=== PATIENT | male | born 1995 | race Caucasian/White ===

== ENCOUNTER 2020-07-25 13:43 | Emergency (ER) | payer MEDICAID, SELFPAY ==
[2020-07-25 13:44] VITALS: BP 124/84; PULSE 90; RESP 16; TEMP 37.2; O2SAT 95; BMI 33.0
--- NOTE | 2020-07-25 14:00 | ECG_ITS ---
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 Measurements Intervals [place] Rate: 72 P: 14 [place]: 170 QRS: -26 QRSD: 110 T: 44 QT: 380 QTc: 416 Interpretive Statements SINUS RHYTHM BORDERLINE LEFT AXIS DEVIATION [QRS AXIS < -20] Compared to ECG 04/21/2019 20:22:19 No significant changes Electronically Signed On 07-27-2020 20:43:24 CDT by Socrates Arias M.D. [id number]
--- NOTE | 2020-07-25 14:00 | XRR_ITS ---
PROCEDURE INFORMATION: Exam: XR Chest, 1 View Exam date and time: 07/25/2020 2:44 PM Age: 24 years old Clinical indication: Chest pain; Type not specified TECHNIQUE: Imaging protocol: XR of the chest Views: 1 view. COMPARISON: CR Chest 1 [place] [id number] 04/21/2019 8:42 PM FINDINGS: Lungs: Unremarkable. No consolidation. Pleural space: Unremarkable. No pleural effusion. No pneumothorax. Heart/Mediastinum: Unremarkable. No cardiomegaly. Bones/joints: Unremarkable. XR/XR chest 1V portable [id number] IMPRESSION: No acute findings.
--- NOTE | 2020-07-25 14:09 | ED_ITS ---
HPI - Chest Pain General: Chief Complaint: Chest Pain Stated Complaint: CHEST PAIN Time Seen by Provider: 07/25/20 13:46 History of Present Illness: HPI narrative: 24-year-old male presents emergency room with complaint of sudden onset of chest pain. He was watching a movie and began having sudden onset of chest pain associated with some shortness of breath it is significantly improved already since then. He has no personal history of heart disease or diabetes. He is on several medications for psychiatric issues. No recent medication changes he had eaten shortly before this. MD complaint: chest pain Onset (ago): minute(s) Timing of current episode: episodic and other (Decreasing) Prior episodes: No Onset: during rest Pain location: substernal and epigastric Severity: mild Quality: aching Relieving factors: nothing Exacerbating factors: nothing Associated symptoms: Reports dyspnea and syncope; Deny abdominal pain, diaphoresis, fever(s), leg edema, nausea, palpitations, sense of impending doom, vomiting or other Treatment prior to arrival: none Review of Systems Const: Denies: fever(s) or diaphoresis ENMT: Denies: throat pain, ear or mastoid pain, nasal discharge or nasal congestion Card: Reports: syncope; Denies: palpitations Resp: Reports: dyspnea GI: Denies: abdominal pain, nausea or vomiting : Denies: flank pain, dysuria, urinary frequency or urinary urgency Skin/Breast: Denies: rash or pruritus Physical Exam Const: COMMON NORMALS: no acute distress GENERAL APPEARANCE: cooperative and comfortable ORIENTATION/CONSCIOUSNESS: Yes awake, Yes oriented to person, Yes oriented to place and Yes oriented to time HENMT: COMMON NORMALS: normocephalic, atraumatic and hearing grossly normal bilaterally HEAD & SCALP: normocephalic and atraumatic Neck/C-Spine: COMMON NORMALS: no JVD Resp: COMMON NORMALS: normal respiratory effort, No retractions, No use of accessory muscles and clear to auscultation bilaterally AUSCULTATION: clear to auscultation bilaterally Cardio: COMMON NORMALS: no JVD, regular rate, regular rhythm and No murmurs present (Cardio) RATE: regular rate RHYTHM: regular rhythm GI: COMMON NORMALS: Soft to palpation and No hepatosplenomegaly present AUSCULTATION: Yes normoactive bowel sounds PALPATION: Yes Soft to palpation, No Tenderness to palpation present (GI), No Guarding due to palpation present (GI) and Yes No hepatosplenomegaly present Extremity: COMMON NORMALS: normal to inspection, capillary refill normal, no clubbing, cyanosis or edema, no calf tenderness and no pedal edema Neuro: SENSORIUM/ORIENTATION: Yes oriented to person, Yes oriented to place and Yes oriented to time Skin: COMMON NORMALS: no rashes or lesions noted GENERAL SKIN EXAM: no rashes or lesions noted Course Vital Signs: Vital signs: Vital Signs Temperature 98.1 F 07/25/20 14:18 Pulse Rate 83 07/25/20 15:50 Respiratory Rate 18 07/25/20 15:50 Blood Pressure 113/67 07/25/20 15:50 Pulse Oximetry 97 07/25/20 15:50 MDM - Chest Pain MDM Narrative: Medical decision making narrative: Complete resolution of symptoms after GI cocktail. EKG unremarkable labs normal will discharge home start on Pepcid follow-up as needed Lab Data: Labs: Lab Results 07/25/20 07/25/20 07/25/20 Range/Units 14:23 14:23 14:23 WBC 8.0 (4.0-10.0) 10^3/ uL RBC 4.98 (4.1-5.3) 10^6/u L Hgb 15.5 (11.7-16.6) g/dL Hct 45.2 (42.0-52.0) % MCV 90.8 (80-94) fL MCH 31.1 (28.0-34.0) pg MCHC 34.3 (30.0-36.0) g/dL RDW 12.5 (12.1-15.1) % Plt Count 280 (130-400) 10^3/c mm MPV 9.7 (7.4-10.4) fL Neut % (Auto) 62.6 % Lymph % (Auto) 28.7 % [place] % (Auto) 6.6 % Eos % (Auto) 1.0 % Baso % (Auto) 0.6 % Neut # (Auto) 5.02 (1.8-7.7) 10^3/u L Lymph # (Auto) 2.3 (0.8-4.8) 10^3/u L [place] # (Auto) 0.5 (0.2-0.9) 10^3/u L Eos # (Auto) 0.1 (0.0-0.8) 10^3/u L Baso # (Auto) 0.1 (0.0-0.1) 10^3/u L Nucleated RBC % (a uto) 0 % Nucleated RBCs # 0.0 /100WBC Sodium 140 (136-145) mmol/L Potassium 4.0 (3.5-5.1) mmol/L Chloride 103 (98-107) mmol/L Carbon Dioxide 23 (22-29) mmol/L Anion Gap 18.0 (5-19) BUN 7 (6-20) mg/dL Creatinine 0.8 (0.7-1.2) mg/dL GFR Calculation 119.8 (90-130) mL/min Glucose 91 (65-115) mg/dL Calculated Osmolal ity 288 (285-295) mOsm/k g Calcium 9.7 (8.5-10.5) mg/dL Total Bilirubin 0.6 (0.15-1.2) mg/dL AST 29 (0-40) U/L ALT 47 H (0-41) U/L Alkaline Phosphata se 145 H (40-130) IU/L Troponin T Baselin e 6 (0-15) ng/L Total Protein 7.1 (6.6-8.7) g/dL Albumin 4.8 (3.5-5.2) g/dL Globulin 2.3 (1.3-4.6) g/dL Discharge Plan Discharge Patient Disposition: Home Clinical Impression: Chest pain due to gastrointestinal reflux disease Condition: Stable Prescriptions: New Pepcid 20 mg tablet 20 mg PO BID Qty: 60 RF: 0 No Action doxepin 10 mg Capsule 10 mg PO BEDTIME RF: 0 lamotrigine 25 mg Tablet 25 mg PO BID RF: 0 simvastatin 5 mg Tablet 5 mg PO QPM RF: 0 mupirocin 2 % Ointment 1 applic TOPICAL BID RF: 0 fluticasone propionate 50 mcg/actuation [place],Suspension 1 spray INTRANASAL DAILY RF: 0 risperidone 0.5 mg Tablet 1.5 mg PO BEDTIME RF: 0 risperidone 0.5 mg Tablet 0.5 mg PO DAILY RF: 0 Denta 5000 Plus 1.1 % Cream 1 applic DENTAL BID RF: 0 venlafaxine 75 mg Tablet Extended Release 24hr 75 mg PO QAM RF: 0 Discharge Orders: Discharge Order (Routine); Ordered 07/25/20 Ordered By: Girma Simmons Referrals: Madhuri Degroot FNP [Primary Care Provider] - Discharge Activity: Increase activity as tolerated Patient Instructions: Diet for Ulcers and Gastritis (ED) Activity Restrictions/Additional Instructions: Start Pepcid 1 pill twice a day follow-up with primary care doctor if not improving in the next week. Coding Level of Care Code ED Cytotechnologist Supervisor for Chg Fwd Exam Comprehensive
[2020-07-25] MEDS: lidocaine 2% viscous 15 ML, aluminum-mag hydrox-simethicon 30 ML, sucralfate oral liq 1 GM PO (14:11)
[2020-07-25 14:18] VITALS: BP 119/71; PULSE 83; RESP 17; TEMP 36.7; O2SAT 96
[2020-07-25 14:55] LABS: Basophils # 0.1 10^3/uL (0.0-0.1); Basophils % 0.6 %; Eosinophils # 0.1 10^3/uL (0.0-0.8); Hematocrit 45.2 % (42.0-52.0); Hemoglobin 15.5 g/dL (11.7-16.6); Lymphocytes # 2.3 10^3/uL (0.8-4.8); Lymphocytes % 28.7 %; Mean Corpuscular HGB Conc 34.3 g/dL (30.0-36.0); Mean Corpuscular Hemoglobin 31.1 pg (28.0-34.0); Mean Corpuscular Volume 90.8 fL (80-94); Mean Platelet Volume 9.7 fL (7.4-10.4); Monocytes # 0.5 10^3/uL (0.2-0.9); Monocytes % 6.6 %; Neutrophils # 5.02 10^3/uL (1.8-7.7); Neutrophils % 62.6 %; Nucleated Red Blood Cells % 0 %; Platelet Count 280 10^3/cmm (130-400); Red Blood Count 4.98 10^6/uL (4.1-5.3); Red Cell Distribution Width 12.5 % (12.1-15.1)
[2020-07-25 15:12] LABS: Alanine Aminotransferase 47 U/L (0-41); Albumin Level 4.8 g/dL (3.5-5.2); Alkaline Phosphatase 145 IU/L (40-130); Aspartate Amino Transferase 29 U/L (0-40); Blood Urea Nitrogen 7 mg/dL (6-20); Calcium 9.7 mg/dL (8.5-10.5); Carbon Dioxide 23 mmol/L (22-29); Chloride 103 mmol/L (98-107); Globulin 2.3 g/dL (1.3-4.6); Glomerular Filtration Rate 119.8 mL/min (90-130); Glucose 91 mg/dL (65-115); Osmolality Calculated 288 mOsm/kg (285-295); Sodium 140 mmol/L (136-145); Total Bilirubin 0.6 mg/dL (0.15-1.2); Total Protein 7.1 g/dL (6.6-8.7)
[2020-07-25 15:36] LABS: Troponin(5th) Baseline 6 ng/L (0-15)
[2020-07-25 15:50] VITALS: BP 113/67; PULSE 83; RESP 18; O2SAT 97
--- NOTE | 2020-07-25 16:00 | ECG_ITS ---
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 Measurements Intervals [place] Rate: 89 P: 16 NC: 165 QRS: 7 QRSD: 110 T: 47 QT: 361 QTc: 441 Interpretive Statements SINUS RHYTHM INDETERMINATE AXIS PATTERN CONSISTENT WITH PULMONARY DISEASE Compared to ECG 07/25/2020 13:52:45 Indeterminate axis now present Electronically Signed On 07-27-2020 20:58:09 CDT by Socrates Arias M.D. [email or web address] Drinkmercy health st[email or web address]/NU/[id number] f
[2020-07-25 17:18] LABS: Troponin 5 2HR Delta 0 ABS# (0-10)
== END 2020-07-25 16:43 | disposition home or self-care (01) ==
PROVIDERS: Emergency Provider Family Medicine; Family Provider Registered Nurse; PCP Registered Nurse
DX: K21.9 Gastro-esophageal reflux disease without esophagitis (principal)
CPT/HCPCS: 12345; 36415; 71045; 80053; 84484; 85025; 93005; 99283; 99284

== ENCOUNTER → 2021-03-01 12:26 | Outpatient (BNVA) | payer MEDICAID, SELFPAY | PROVIDERS: PCP Registered Nurse; Visit Provider Social Worker | DX: F33.1 Major depressive disorder, recurrent, moderate (principal); F43.12 Post-traumatic stress disorder, chronic | CPT/HCPCS: 90832 ==

== ENCOUNTER → 2021-03-22 13:43 | Outpatient (BNVA) | payer MEDICAID, SELFPAY | PROVIDERS: PCP Registered Nurse; Visit Provider Social Worker | DX: F33.1 Major depressive disorder, recurrent, moderate (principal); F43.12 Post-traumatic stress disorder, chronic | CPT/HCPCS: 90834 ==

== ENCOUNTER → 2021-04-12 12:55 | Outpatient (BNVA) | payer MEDICAID, SELFPAY | PROVIDERS: PCP Registered Nurse; Visit Provider Social Worker | DX: F33.1 Major depressive disorder, recurrent, moderate (principal); F43.12 Post-traumatic stress disorder, chronic | CPT/HCPCS: 90834 ==

== ENCOUNTER 2021-12-26 20:00 | Outpatient (CLI) | payer MEDICAID, SELFPAY | END 2021-12-26 20:01 | disposition home or self-care (01) | LOC: SLEEP 12-27 06:46 | PROVIDERS: PCP Registered Nurse; Visit Provider Nurse Practitioner Family | DX: G47.10 Hypersomnia, unspecified (principal); R06.83 Snoring; R53.83 Other fatigue | CPT/HCPCS: 95810 ==

== ENCOUNTER 2022-01-17 20:27 | Emergency (ER) | payer MEDICAID, SELFPAY ==
[2022-01-17 20:42] VITALS: BP 158/100; PULSE 69; RESP 16; TEMP 37.1; O2SAT 98; BMI 32.1
--- NOTE | 2022-01-17 20:50 | CTR_ITS ---
PROCEDURE INFORMATION: Exam: CT Abdomen And Pelvis With Contrast Exam date and time: 01/17/2022 9:14 PM Age: 26 years old Clinical indication: Abdominal pain; Generalized; Additional info: Fever, diarrhea TECHNIQUE: Imaging protocol: Computed tomography of the abdomen and pelvis with contrast. Radiation optimization: All CT scans at this facility use at least one of these dose optimization techniques: automated exposure control; mA and/or kV adjustment per patient size (includes targeted exams where dose is matched to clinical indication); or iterative reconstruction. Contrast material: OMNI 300; Contrast volume: 95 ml; Contrast route: INTRAVENOUS (IV); COMPARISON: CR XR chest 1V portable [id number] 07/25/2020 2:31 PM RADIATION DOSE METRICS: Total DLP (mGy-cm): 2014.36 FINDINGS: Lungs: The lung bases are clear. No effusion Liver: Normal. No mass. Gallbladder and bile ducts: No wall thickening, pericholecystic fluid or stones. Pancreas: Normal. No ductal dilation. Spleen: Normal. No splenomegaly. Adrenal glands: Normal. No mass. Kidneys and ureters: 4.3 cm left renal cyst. Stomach and bowel: Unremarkable. No obstruction. No mucosal thickening. Appendix: No evidence of appendicitis. Intraperitoneal space: Unremarkable. No free air. No significant fluid collection. Vasculature: Unremarkable. No abdominal aortic aneurysm. Lymph nodes: Unremarkable. No enlarged lymph nodes. Urinary bladder: Unremarkable as visualized. Reproductive: Unremarkable as visualized. Bones/joints: Unremarkable. No acute fracture. Soft tissues: Unremarkable. CT/CT abdomen pelvis w con* [id number] IMPRESSION: No cause for acute pain is identified. COMMENTS: Consistent with the [place] [employer]'s Incidental Findings Committee white paper (J Am Hayley Radiol 2018): Any incidental renal lesion less than 1 cm or classified as too small to characterize, or any incidental cystic renal lesion characterized as simple-appearing, is likely benign. No follow-up imaging is recommended for these lesions per consensus recommendations based on imaging criteria.
--- NOTE | 2022-01-17 20:53 | ED_ITS ---
HPI - Fever General: Chief Complaint: Fever Stated Complaint: High Blood Pressure\Fever\Diarhea Time Seen by Provider: 01/17/22 20:50 History of Present Illness: 26-year-old male patient comes in today with complaints of diarrhea for 7 days, increase in blood pressure, and a fever of 101 today. Patient also noticed some blood in his stool today. Patient has a history of intellectual disability, ADHD, and mood disorder. Review of patient's medications he does take pantoprazole and meloxicam routinely along with his other psychiatric medications. Patient also uses ibuprofen for breakthrough pain. Patient appears nontoxic. Patient appears in no pain. Patient does report some shortness of breath with exertion. MD elicited complaint: malaise Onset (ago): day(s) Measured temperature: 101 F Associated symptoms: Reports diarrhea; Deny chest pain or vomiting Review of Systems General: Reports: 10 or more systems reviewed and unremarkable except in HPI and below Const: Reports: fever(s) ENMT: Denies: throat pain Card: Denies: chest pain Resp: Reports: dyspnea GI: Reports: diarrhea; Denies: vomiting : Denies: difficulty urinating Skin/Breast: Denies: rash PFS ED PFSH: Social History Smoking and tobacco status: current every day smoker (chew) Current gender identity: Male Physical Exam Const: COMMON NORMALS: alert HENMT: HEAD & SCALP: normal to inspection Neck/C-Spine: COMMON NORMALS: full ROM Resp: COMMON NORMALS: normal respiratory effort and clear to auscultation bila terally AUSCULTATION: clear to auscultation bilaterally Cardio: COMMON NORMALS: regular rate and regular rhythm RATE: regular rate RHYTHM: regular rhythm GI: COMMON NORMALS: Soft to palpation and non-tender PALPATION: Yes Soft to palpation Extremity: COMMON NORMALS: full ROM and no pedal edema Neuro: SENSORIUM/ORIENTATION: Yes alert Psych: COMMON NORMALS: cooperative Skin: COMMON NORMALS: no rashes or lesions noted and turgor normal GENERAL SKIN EXAM: no rashes or lesions noted and turgor normal Course Vital Signs: Vital signs: Vital Signs Temperature 99.3 F 01/17/22 21:00 Pulse Rate 65 01/17/22 21:20 Respiratory Rate 20 H 04/07/22 21:20 Blood Pressure 154/81 04/07/22 21:20 Pulse Oximetry 98 01/17/22 21:20 MDM - Fever Medical Decision Making 26-year-old male patient comes in today with complaints of diarrhea for 7 days. Patient was concerned due to a temperature of 101 today, and noticing some blood in his stool. On exam abdomen soft nontender. Bowel sounds are present. Lungs are clear to auscultation. Skin is warm and dry. Vital signs are normal except for some mild elevation in blood pressure. Differential diagnosis includes diverticulitis, colitis, gastroenteritis. Laboratory values were unremarkable. Urinalysis was normal. CT of the abdomen pelvis was unremarkable. Believe the patient probably has an mild bout of gastroenteritis with secondary persistent diarrhea. Recommended some loperamide for diarrhea and recommended follow-up with primary care next week for recheck on blood pressure and further treatment. Patient appears nontoxic, caregiver reports understanding of recommendations. Lab Data : 01/17/22 20:58 01/17/22 20:58 Radiology Impressions Abdomen/Pelvis CT 01/17/22 20:50 IMPRESSION: No cause for acute pain is identified. COMMENTS: Consistent with the [place] [employer]'s Incidental Findings Committee white paper (J Am Hayley Radiol 2018): Any incidental renal lesion less than 1 cm or classified as too small to characterize, or any incidental cystic renal lesion characterized as simple-appearing, is likely benign. No follow-up imaging is recommended for these lesions per consensus recommendations based on imaging criteria. Laboratory Results WBC 7.7 10^3/uL (4.0-10.0) 01/17/22 20:58 RBC 5.07 10^6/uL (4.1-5.3) 01/17/22 20:58 Hgb 15.8 g/dL (11.7-16.6) 01/17/22 20:58 Hct 46.3 % (42.0-52.0) 01/17/22 20:58 MCV 91.3 fl (80-94) 01/17/22 20:58 MCH 31.2 pg (28.0-34.0) 01/17/22 20:58 MCHC 34.1 g/dL (30.0-36.0) 01/17/22 20:58 RDW 13.2 % (12.1-15.1) 01/17/22 20:58 Plt Count 280 10^3/cmm (130-400) 01/17/22 20:58 MPV 9.6 fL (7.4-10.4) 01/17/22 20:58 Neut % (Auto) 52.2 % 01/17/22 20:58 Lymph % (Auto) 39.0 % 01/17/22 20:58 Terrell % (Auto) 5.6 % 01/17/22 20:58 Eos % (Auto) 1.6 % 01/17/22 20:58 Baso % (Auto) 1.2 % 01/17/22 20:58 Neut # (Auto) 4.00 10^3/uL (1.8-7.7) 01/17/22 20:58 Lymph # (Auto) 3.0 10^3/uL (0.8-4.8) 01/17/22 20:58 Terrell # (Auto) 0.4 10^3/uL (0.2-0.9) 01/17/22 20:58 Eos # (Auto) 0.1 10^3/uL (0.0-0.8) 01/17/22 20:58 Baso # (Auto) 0.1 10^3/uL (0.0-0.1) 01/17/22 20:58 Nucleated RBC % (auto) 0 % 01/17/22 20:58 Nucleated RBCs # 0.0 /100WBC 01/17/22 20:58 Sodium 140 mmol/L (136-145) 01/17/22 20:58 Potassium 3.9 mmol/L (3.5-5.1) 01/17/22 20:58 Chloride 105 mmol/L (98-107) 01/17/22 20:58 Carbon Dioxide 25 mmol/L (22-29) 01/17/22 20:58 Anion Gap 13.9 (5-19) 01/17/22 20:58 BUN 5 mg/dL (6-20) L 01/17/22 20:58 Creatinine 0.7 mg/dL (0.7-1.2) 01/17/22 20:58 GFR Calculation 137.4 mL/min (90-130) H 01/17/22 20:58 Glucose 102 mg/dL (65-115) 01/17/22 20:58 Calculated Osmolality 287 mOsm/kg (285-295) 01/17/22 20:58 Calcium 9.9 mg/dL (8.5-10.5) 01/17/22 20:58 Total Bilirubin 0.4 mg/dL (0.15-1.2) 01/17/22 20:58 AST 29 U/L (0-40) 01/17/22 20:58 ALT 53 U/L (0-41) H 01/17/22 20:58 Alkaline Phosphatase 135 IU/L (40-130) H 01/17/22 20:58 Total Protein 7.2 g/dL (6.6-8.7) 01/17/22 20:58 Albumin 5.0 g/dL (3.5-5.2) 01/17/22 20:58 Globulin 2.2 g/dL (1.3-4.6) 01/17/22 20:58 Lipase 25 U/L (13-60) 01/17/22 20:58 Urine Color Yellow (Yellow) 01/17/22 21:35 Urine Appearance Clear (CLEAR) 01/17/22 21:35 Urine pH 5 (5-7) 01/17/22 21:35 Ur Specific [place] 1.020 (1.005-1.030) 01/17/22 21:35 Urine Protein Neg (Negative) 01/17/22 21:35 Urine Glucose (UA) Norm (Normal) 01/17/22 21:35 Urine Ketones Negative (Negative) 01/17/22 21:35 Urine Blood Neg (Negative) 01/17/22 21:35 Urine Nitrate Negative (Negative) 01/17/22 21:35 Urine Bilirubin Neg (Negative) 01/17/22 21:35 Urine Urobilinogen Norm mg/dL (Negative) 01/17/22 21:35 Ur Leukocyte Esterase Negative (Negative) 01/17/22 21:35 EKG Data EKG 1: EKG interpretation date: 01/17/22 EKG interpretation time: 21:06 Prior EKG tracings: not available for review Interpretation: EKG shows a regular rhythm at 61 bpm. Rhythm is sinus in nature. No ST elevation or ectopy is noted. There is artifact noted on the tracing. Prior exams not available for comparison. Discharge Plan Discharge Patient Disposition: Home Clinical Impression: Viral infection Diarrhea Qualifiers: Diarrhea type: presumed infectious Qualified Code(s): R19.7 - Diarrhea, unspecified Condition: Stable Prescriptions: New loperamide 2 mg capsule 2 mg PO Q4H PRN (Reason: loose stool) Qty: 20 0RF Rx Instructions: administer after each loose stool until symptoms controlled; do not exceed 16 mg per 24 hrs No Action pantoprazole [Protonix] 20 mg tablet,delayed release (DR/EC) 20 mg PO DAILY 30 Days Qty: 30 0RF doxepin 10 mg Capsule 10 mg PO BEDTIME 0RF lamotrigine 25 mg Tablet 25 mg PO BID 0RF simvastatin 5 mg Tablet 5 mg PO QPM 0RF mupirocin 2 % Ointment 1 applic TOPICAL BID 0RF fluticasone propionate 50 mcg/actuation [place],Suspension 1 spray INTRANASAL DAILY 0RF risperidone 0.5 mg Tablet 1.5 mg PO BEDTIME 0RF risperidone 0.5 mg Tablet 0.5 mg PO DAILY 0RF Denta 5000 Plus 1.1 % Cream 1 applic DENTAL BID 0RF venlafaxine 75 mg Tablet Extended Release 24hr 75 mg PO QAM 0RF Discharge Orders: Discharge ED (Routine); Ordered 01/17/22 Ordered By: Philip Flynn Referrals: Madhuri Degroot FNP [Primary Care Provider] - Discharge Diet: Usual diet Discharge Activity: Increase activity as tolerated Patient Instructions: Gastroenteritis (ED) Activity Restrictions/Additional Instructions: Drink plenty of fluids. Use loperamide 1 capsule every 4 hours as needed for diarrhea stools. Follow-up with primary care in 1 week for recheck, and to review blood pressure. Return to ER for worsening symptoms or new concerns. Coding Level of Care Code ED Wet Process Operator for Basim Fwd Exam Comprehensive
[2022-01-17 21:00] VITALS: BP 154/81; PULSE 71; RESP 15; TEMP 37.4; O2SAT 97
[2022-01-17 21:05] LABS: Basophils # 0.1 10^3/uL (0.0-0.1); Basophils % 1.2 %; Eosinophils # 0.1 10^3/uL (0.0-0.8); Eosinophils % 1.6 %; Hematocrit 46.3 % (42.0-52.0); Hemoglobin 15.8 g/dL (11.7-16.6); Mean Corpuscular HGB Conc 34.1 g/dL (30.0-36.0); Mean Corpuscular Hemoglobin 31.2 pg (28.0-34.0); Mean Corpuscular Volume 91.3 fl (80-94); Mean Platelet Volume 9.6 fL (7.4-10.4); Monocytes # 0.4 10^3/uL (0.2-0.9); Monocytes % 5.6 %; Neutrophils % 52.2 %; Nucleated Red Blood Cells % 0 %; Platelet Count 280 10^3/cmm (130-400); Red Blood Count 5.07 10^6/uL (4.1-5.3); Red Cell Distribution Width 13.2 % (12.1-15.1); White Blood Count 7.7 10^3/uL (4.0-10.0)
[2022-01-17] MEDS: sodium chloride 0.9% 1,000 ML 999 ML IV (21:06)
[2022-01-17] MEDS: iohexol 300 mg/mL 100 mL Btl IV (21:12)
[2022-01-17 21:20] VITALS: BP 154/81; PULSE 65; RESP 20; O2SAT 98
[2022-01-17 21:31] LABS: Alanine Aminotransferase 53 U/L (0-41); Alkaline Phosphatase 135 IU/L (40-130); Anion Gap 13.9 (5-19); Aspartate Amino Transferase 29 U/L (0-40); Blood Urea Nitrogen 5 mg/dL (6-20); Calcium 9.9 mg/dL (8.5-10.5); Carbon Dioxide 25 mmol/L (22-29); Chloride 105 mmol/L (98-107); Globulin 2.2 g/dL (1.3-4.6); Glomerular Filtration Rate 137.4 mL/min (90-130); Glucose 102 mg/dL (65-115); Lipase 25 U/L (13-60); Osmolality Calculated 287 mOsm/kg (285-295); Potassium 3.9 mmol/L (3.5-5.1); Sodium 140 mmol/L (136-145); Total Bilirubin 0.4 mg/dL (0.15-1.2); Total Protein 7.2 g/dL (6.6-8.7)
[2022-01-17 21:39] LABS: Add Urine Microscopic? NO; Charge for UA Resulting for Rev
[2022-01-17 21:45] LABS: Bilirubin Urine Neg (Negative); Blood Urine Neg (Negative); Glucose Urine UA Norm (Normal); Ketones Urine Negative (Negative); Leukocyte Esterase Urine Negative (Negative); Nitrate Urine Negative (Negative); Protein Urine Neg (Negative); Urine Appearance Clear (CLEAR); Urine Color Yellow (Yellow); Urobilinogen Urine Norm (Negative); pH Urine 5 (5-7)
[2022-01-17] MEDS: diphenoxylate/atropine Tablet 2 TAB PO (22:15)
[2022-01-17 22:16] VITALS: BP 143/70; PULSE 71; RESP 20; O2SAT 99
== END 2022-01-17 22:24 | disposition home or self-care (01) ==
PROVIDERS: Emergency Provider Nurse Practitioner Family; PCP Registered Nurse
DX: R19.7 Diarrhea, unspecified (principal); B34.9 Viral infection, unspecified; F17.220 Nicotine dependence, chewing tobacco, uncomplicated
CPT/HCPCS: 74177; 80053; 81003; 83690; 85025; 96360; 99283; J7030; Q9967

== ENCOUNTER 2022-01-29 07:35 | Outpatient (CLI) | payer MEDICAID, SELFPAY ==
[2022-01-29 08:34] LABS: Basophils # 0.1 10^3/uL (0.0-0.1); Eosinophils # 0.2 10^3/uL (0.0-0.8); Hematocrit 45.9 % (42.0-52.0); Hemoglobin 15.9 g/dL (11.7-16.6); Lymphocytes # 2.1 10^3/uL (0.8-4.8); Lymphocytes % 34.3 %; Mean Corpuscular HGB Conc 34.6 g/dL (30.0-36.0); Mean Corpuscular Hemoglobin 31.7 pg (28.0-34.0); Mean Corpuscular Volume 91.4 fl (80-94); Mean Platelet Volume 9.6 fL (7.4-10.4); Monocytes # 0.4 10^3/uL (0.2-0.9); Monocytes % 6.2 %; Neutrophils # 3.34 10^3/uL (1.8-7.7); Neutrophils % 54.7 %; Nucleated Red Blood Cells % 0 %; Platelet Count 237 10^3/cmm (130-400); Red Blood Count 5.02 10^6/uL (4.1-5.3); Red Cell Distribution Width 13.2 % (12.1-15.1); White Blood Count 6.1 10^3/uL (4.0-10.0)
[2022-01-29 09:04] LABS: Alanine Aminotransferase 39 U/L (0-41); Albumin Level 4.9 g/dL (3.5-5.2); Alkaline Phosphatase 130 IU/L (40-130); Anion Gap 13.7 (5-19); Aspartate Amino Transferase 25 U/L (0-40); Blood Urea Nitrogen 7 mg/dL (6-20); Calcium 9.6 mg/dL (8.5-10.5); Carbon Dioxide 28 mmol/L (22-29); Chloride 104 mmol/L (98-107); Cholesterol 144 mg/dL (0-200); Globulin 2.4 g/dL (1.3-4.6); Glomerular Filtration Rate 102.8 mL/min (90-130); Glucose 100 mg/dL (65-115); HDL Cholesterol 24 mg/dL (60-100); LDL Cholesterol Calculated 57 mg/dL (50-129); LDL HDL Ratio 2.38 RATIO (0.00-3.22); Osmolality Calculated 292 mOsm/kg (285-295); Potassium 3.7 mmol/L (3.5-5.1); Sodium 142 mmol/L (136-145); Thyroid Stimulating Hormone 1.56 uIU/mL (0.27-4.20); Total Bilirubin 0.6 mg/dL (0.15-1.2); Total Protein 7.3 g/dL (6.6-8.7); Triglycerides 317 mg/dL (0-150)
== END 2022-01-29 07:36 | disposition home or self-care (01) ==
LOC: LAB 07:37
PROVIDERS: PCP Registered Nurse; Visit Provider Psychiatry & Neurology Psychiatry
DX: F33.9 Major depressive disorder, recurrent, unspecified (principal)
CPT/HCPCS: 36415; 80053; 80061; 84443; 85025

== ENCOUNTER 2022-05-25 09:19 | Emergency (ER) | payer MEDICAID, SELFPAY ==
[2022-05-25 09:23] VITALS: BP 140/83; PULSE 89; RESP 18; TEMP 36.5; O2SAT 96; BMI 34.2
--- NOTE | 2022-05-25 09:25 | XRR_ITS ---
PROCEDURE INFORMATION: Exam: XR Left Shoulder Exam date and time: 05/25/2022 9:59 AM Age: 26 years old Clinical indication: Injury or trauma; Fall; Blunt trauma (contusions or hematomas); Shoulder; Left TECHNIQUE: Imaging protocol: Radiologic exam of the Left shoulder. Views: 2 or more views. AP INT/ EXT ROTATION, SCAPULAR Y COMPARISON: CR XR chest 1V portable [id number] 07/25/2020 2:31 PM FINDINGS: Bones/joints: There is normal alignment at the glenohumeral joint. There are no fractures or dislocations. The acromioclavicular joint and coracoclavicular spaces are intact. There is an oblique incomplete left mid clavicle fracture seen. The visualized scapula appears unremarkable. Soft tissues: There are no radiopaque foreign bodies or soft tissue swelling. Notes: If there is further concern, follow-up radiographs or MRI of the shoulder may be performed for complete assessment. XR/XR shoulder LT min 2V* [id number] IMPRESSION: Oblique incomplete left mid clavicle fracture.
--- NOTE | 2022-05-25 09:30 | W.ED.EXTPRO ---
HPI - Extremity Problem General: Chief complaint: Extremity Injury, Upper Stated complaint: left shoulder injury Time Seen by Provider: 05/25/22 09:25 Source: patient Mode of arrival: ambulatory Limitations: no limitations History of Present Illness: 26-year-old male states he was playing baseball today. He states he was running to first and ran into the first baseman. He states he ran into him with his left shoulder he states this happened little over 1 hour ago he has shoulder pain he rates a 6 out of 10 he is able to move states he does have pain with movement denies any neck pain denies any other injuries. Associated symptoms: Deny chest pain, fever(s) or rash Review of Systems Const: Denies: fever(s), chills, body aches or change in appetite Eyes: Denies: blurry vision or eye discomfort ENMT: Denies: throat pain or dental pain Card: Denies: chest pain Resp: Denies: dyspnea GI: Denies: abdominal pain, nausea, vomiting or diarrhea : Denies: dysuria Musc: Reports: extremity pain Skin/Breast: Denies: rash Neuro: Denies: headache(s) Psych: Denies: depression Faraz/Lymph: Denies: easy bruising All/Imm: Denies: urticaria PFSH ED PFSH: Medical History (Updated 05/25/22 @ 10:18 by Kira Morrison MD) No pertinent past medical history Social History Smoking and tobacco status: current every day smoker (chew) Current gender identity: Male Physical Exam Const: COMMON NORMALS: no acute distress, patient oriented x3 and healthy appearing HENMT: COMMON NORMALS: normocephalic and atraumatic HEAD & SCALP: normocephalic and atraumatic Eye: COMMON NORMALS: Equal, round and reactive pupils present and EOMs intact bilaterally PUPIL: Yes Equal, round and reactive pupils present Neck/C-Spine: COMMON NORMALS: full ROM and supple Chest: COMMONS NORMALS: normal inspection of the chest and normal palpation of entire chest wall Resp: COMMON NORMALS: normal respiratory effort, No retractions and No use of accessory muscles Cardio: COMMON NORMALS: regular rate, regular rhythm and No murmurs present (Cardio) RATE: regular rate RHYTHM: regular rhythm GI: INSPECTION: Yes normal to inspection Extremity: COMMON NORMALS: normal to inspection and full ROM NARRATIVE EXTREMITY EXAM: Tenderness over left shoulder some muscle spasms in his left trapezius no obvious dislocation at this time distal pulses intact Neuro: COMMON NORMALS: patient oriented x3, moves all extremities and no focal motor deficits Psych: COMMON NORMALS: mental status grossly normal, Normal thought process present and cooperative THOUGHT PROCESS: Normal thought process present Skin: COMMON NORMALS: no rashes or lesions noted and no wounds GENERAL SKIN EXAM: no rashes or lesions noted Course Vital Signs: Vital signs: Vital Signs Temperature 97.7 F 05/25/22 09:23 Pulse Rate 89 05/25/22 09:23 Respiratory Rate 18 05/25/22 09:23 Blood Pressure 140/83 05/25/22 09:23 Pulse Oximetry 96 05/25/22 09:23 Oxygen Delivery Me thod 05/25/22 09:23 MDM - Extremity (Nontraumatic) Medical Decision Making Patient presents with a clavicle fracture from a fall x-ray shows a clavicle fracture has no signs of dislocation will place in a sling getting follow-up orthopedics he is return if worsening he understands agrees to plan. Discharge Plan Discharge Patient Disposition: Home Clinical Impression: Fracture of clavicle Qualifiers: Encounter type: initial encounter Clavicle location: sternal end Fracture type: closed Laterality: left Condition: Stable Prescriptions: New hydrocodone-acetaminophen 5-325 mg tablet 1 tab PO Q6H PRN (Reason: pain) Qty: 8 0RF Naprosyn 500 mg tablet 500 mg PO BID PRN (Reason: pain) Qty: 20 0RF No Action pantoprazole [Protonix] 20 mg tablet,delayed release (DR/EC) 20 mg PO DAILY 30 Days Qty: 30 0RF doxepin 10 mg Capsule 10 mg PO BEDTIME lamotrigine 25 mg Tablet 25 mg PO BID simvastatin 5 mg Tablet 5 mg PO QPM mupirocin 2 % Ointment 1 applic TOPICAL BID fluticasone propionate 50 mcg/actuation [place],Suspension 1 spray INTRANASAL DAILY risperidone 0.5 mg Tablet 1.5 mg PO BEDTIME risperidone 0.5 mg Tablet 0.5 mg PO DAILY Denta 5000 Plus 1.1 % Cream 1 applic DENTAL BID venlafaxine 75 mg Tablet Extended Release 24hr 75 mg PO QAM loperamide 2 mg capsule 2 mg PO Q4H PRN (Reason: loose stool) Qty: 20 0RF Rx Instructions: administer after each loose stool until symptoms controlled; do not exceed 16 mg per 24 hrs Discharge Orders: Discharge ED (Routine); Ordered 05/25/22 Ordered By: Kira Morrison Referrals: Scott Monsivais DO [Physician] - Shahrzad Batres FNP [Primary Care Provider] - Discharge Diet: Advance as tolerated Discharge Activity: Resume usual activity Patient Instructions: Clavicle Fracture (ED), Opioid Safety Coding Level of Care Code ED Sintering Plant Supervisor for Chg Fwd Exam Comprehensive
[2022-05-25] MEDS: HYDROcodone-acetaminophen 5-325 mg Tablet 1 TAB PO (09:51)
[2022-05-25 10:27] VITALS: BP 139/89; PULSE 74; RESP 16; O2SAT 98
--- NOTE | 2022-05-28 09:44 | DCPLANNER ---
Addendum entered by Romi Hoyt 06/14/22 13:29: Patient had a follow up appointment scheduled for 05.29.22 with ortho - patient did attend appointment Original Note: solid waste disposal manager had message to schedule a follow up appointment for patient with ortho. solid waste disposal manager sent patients information to the front office at ortho. Patients information will be printed and reviewed. Clinic will call patient with appointment information.
== END 2022-05-25 10:28 | disposition home or self-care (01) ==
PROVIDERS: Emergency Provider Emergency Medicine; PCP Nurse Practitioner Family
DX: S42.002A Fracture of unspecified part of left clavicle, initial encounter for closed fracture (principal); W51.XXXA Accidental striking against or bumped into by another person, initial encounter; Y93.64 Activity, baseball; Y92.320 Baseball field as the place of occurrence of the external cause; F17.220 Nicotine dependence, chewing tobacco, uncomplicated
CPT/HCPCS: 73030; 99283

== ENCOUNTER → 2022-05-29 13:26 | Outpatient (BNVA) | payer MEDICAID, SELFPAY | PROVIDERS: PCP Nurse Practitioner Family; Visit Provider Nurse Practitioner Family | DX: S42.002A Fracture of unspecified part of left clavicle, initial encounter for closed fracture (principal); W03.XXXA Other fall on same level due to collision with another person, initial encounter; Y93.64 Activity, baseball | CPT/HCPCS: 99213; 99214 ==

== ENCOUNTER 2022-06-03 20:17 | Emergency (ER) | payer MEDICAID, SELFPAY ==
--- NOTE | 2022-06-03 20:35 | XRR_ITS ---
PROCEDURE INFORMATION: Exam: XR Left Shoulder Exam date and time: 06/03/2022 8:41 PM Age: 26 years old Clinical indication: Injury or trauma; Fall; Blunt trauma (contusions or hematomas); Shoulder; Left TECHNIQUE: Imaging protocol: Radiologic exam of the Left shoulder. Views: 2 or more views. COMPARISON: CR (CHEST, ) 05/25/2022 9:59 AM FINDINGS: Bones/joints: Nondisplaced left mid clavicular fracture again noted, no significant interval change. No acute fracture or dislocation. Soft tissues: Normal. XR/XR shoulder LT min 2V* [id number] IMPRESSION: 1. No acute findings. 2. Redemonstrated nondisplaced left midclavicular fracture, no significant interval change.
[2022-06-03 20:40] VITALS: BMI 34.4
[2022-06-03 20:42] VITALS: BP 140/95; PULSE 65; RESP 16; TEMP 37.1; O2SAT 98
[2022-06-03] MEDS: naproxen 500 mg Tablet PO (20:47)
--- NOTE | 2022-06-03 21:04 | W.ED.EXTPRO ---
HPI - Extremity Problem General: Chief complaint: Extremity Injury, Upper Stated complaint: Injury Left Arm and Shoulder Pain Time Seen by Provider: 06/03/22 20:34 Source: patient Mode of arrival: ambulatory Limitations: no limitations History of Present Illness: 26-year-old male who had fractured his clavicle roughly 2 weeks ago he is in a sling has been following with Ortho he states that tonight he had some increased pain in his shoulder states pain is a 6 out of 10 he still has full range of motion states it does hurt with movement he is been told by the Ortho to be taken off his sling and doing some exercises. Denies any new injuries Associated symptoms: Deny chest pain, fever(s) or rash Review of Systems Const: Denies: fever(s), chills, body aches or change in appetite Eyes: Denies: blurry vision or eye discomfort ENMT: Denies: throat pain or dental pain Card: Denies: chest pain Resp: Denies: dyspnea GI: Denies: abdominal pain, nausea, vomiting or diarrhea : Denies: dysuria Musc: Reports: extremity pain; Denies: neck pain or back pain Skin/Breast: Denies: rash Neuro: Denies: headache(s) Psych: Denies: depression Faraz/Lymph: Denies: easy bruising All/Imm: Denies: urticaria PFSH ED PFSH: Medical History No pertinent past medical history Social History Smoking and tobacco status: current every day smoker (chew) Current gender identity: Male Physical Exam Const: COMMON NORMALS: no acute distress, patient oriented x3 and healthy appearing HENMT: COMMON NORMALS: normocephalic and atraumatic HEAD & SCALP: normocephalic and atraumatic Eye: COMMON NORMALS: Equal, round and reactive pupils present and EOMs intact bilaterally PUPIL: Yes Equal, round and reactive pupils present Neck/C-Spine: COMMON NORMALS: full ROM and supple Chest: COMMONS NORMALS: normal inspection of the chest and normal palpation of entire chest wall Resp: COMMON NORMALS: normal respiratory effort, No retractions, No use of accessory muscles and clear to auscultation bilaterally AUSCULTATION: clear to auscultation bilaterally Cardio: COMMON NORMALS: regular rate, regular rhythm and No murmurs present (Cardio) RATE: regular rate RHYTHM: regular rhythm GI: COMMON NORMALS: Normal to inspection, nondistended, normoactive bowel sounds present, Soft to palpation, non-tender and no masses PALPATION: Yes Soft to palpation Extremity: NARRATIVE EXTREMITY EXAM: Tenderness over left clavicle full range of motion noted distal pulses sensation intact. Neuro: COMMON NORMALS: patient oriented x3, moves all extremities and no focal motor deficits Psych: COMMON NORMALS: mental status grossly normal, Normal thought process present and cooperative THOUGHT PROCESS: Normal thought process present Skin: COMMON NORMALS: no rashes or lesions noted and no wounds GENERAL SKIN EXAM: no rashes or lesions noted Course Vital Signs: Vital signs: Vital Signs Temperature 98.7 F 06/03/22 20:42 Pulse Rate 76 06/03/22 21:18 Respiratory Rate 18 06/03/22 21:18 Blood Pressure 170/101 06/03/22 21:18 Pulse Oximetry 97 06/03/22 21:18 Oxygen Delivery Me thod 06/03/22 20:42 MDM - Extremity (Nontraumatic) Medical Decision Making Patient presents here with a healing clavicle fracture likely causing his pain he is well-appearing here he is able to move his arm he has good distal pulses x-ray shows no acute abnormalities he is stable for discharge he is to follow-up with orthopedics and return if worsening. Lab Data Radiology Impressions Shoulder X-Ray 06/03/22 20:35 IMPRESSION: 1. No acute findings. 2. Redemonstrated nondisplaced left midclavicular fracture, no significant interval change. Discharge Plan Discharge Patient Disposition: Home Clinical Impression: Fracture of clavicle Qualifiers: Encounter type: subsequent encounter Clavicle location: shaft Fracture alignment: nondisplaced Laterality: left Fracture healing: with routine healing Condition: Stable Prescriptions: No Action pantoprazole [Protonix] 20 mg tablet,delayed release (DR/EC) 20 mg PO DAILY 30 Days Qty: 30 0RF doxepin 10 mg Capsule 10 mg PO BEDTIME lamotrigine 25 mg Tablet 25 mg PO BID simvastatin 5 mg Tablet 5 mg PO QPM mupirocin 2 % Ointment 1 applic TOPICAL BID fluticasone propionate 50 mcg/actuation [facility],Suspension 1 spray INTRANASAL DAILY risperidone 0.5 mg Tablet 1.5 mg PO BEDTIME risperidone 0.5 mg Tablet 0.5 mg PO DAILY Denta 5000 Plus 1.1 % Cream 1 applic DENTAL BID venlafaxine 75 mg Tablet Extended Release 24hr 75 mg PO QAM loperamide 2 mg capsule 2 mg PO Q4H PRN (Reason: loose stool) Qty: 20 0RF Rx Instructions: administer after each loose stool until symptoms controlled; do not exceed 16 mg per 24 hrs hydrocodone-acetaminophen 5-325 mg tablet 1 tab PO Q6H PRN (Reason: pain) Qty: 8 0RF Naprosyn 500 mg tablet 500 mg PO BID PRN (Reason: pain) Qty: 20 0RF Discharge Orders: Discharge ED (Routine); Ordered 06/03/22 Ordered By: Kira Morrison Referrals: Shahrzad Batres FNP [Primary Care Provider] - 1-3 days Discharge Diet: Advance as tolerated Discharge Activity: Resume usual activity Patient Instructions: Clavicle Fracture (ED) Stand Alone Forms: Work/School Release Coding Level of Care Code ED Clinical Registered Nurse for Basim Fwd Exam Comprehensive
[2022-06-03 21:18] VITALS: BP 170/101; PULSE 76; RESP 18; O2SAT 97
== END 2022-06-03 21:18 | disposition home or self-care (01) ==
PROVIDERS: Emergency Provider Emergency Medicine; PCP Nurse Practitioner Family
DX: S42.025A Nondisplaced fracture of shaft of left clavicle, initial encounter for closed fracture (principal); F17.220 Nicotine dependence, chewing tobacco, uncomplicated; X58.XXXA Exposure to other specified factors, initial encounter
CPT/HCPCS: 73030; 99283

== ENCOUNTER → 2022-06-19 10:23 | Outpatient (BNVA) | payer MEDICAID, SELFPAY | PROVIDERS: PCP Nurse Practitioner Family; Visit Provider Nurse Practitioner Family | DX: S42.002A Fracture of unspecified part of left clavicle, initial encounter for closed fracture (principal); X58.XXXA Exposure to other specified factors, initial encounter | CPT/HCPCS: 73000; 99213; 99214 ==

== ENCOUNTER → 2022-07-15 15:18 | Outpatient (BNVA) | payer MEDICAID, SELFPAY | PROVIDERS: PCP Nurse Practitioner Family; Visit Provider Nurse Practitioner Family | DX: S42.002A Fracture of unspecified part of left clavicle, initial encounter for closed fracture (principal); X58.XXXA Exposure to other specified factors, initial encounter | CPT/HCPCS: 73000; 99213 ==

== ENCOUNTER → 2022-08-16 10:53 | Outpatient (BNVA) | payer MEDICAID, SELFPAY | PROVIDERS: PCP Nurse Practitioner Family; Visit Provider Nurse Practitioner Family | DX: S49.92XA Unspecified injury of left shoulder and upper arm, initial encounter (principal); X58.XXXA Exposure to other specified factors, initial encounter | CPT/HCPCS: 73000; 99213 ==

== ENCOUNTER 2023-02-20 12:42 | Emergency (ER) | payer MEDICAID, SELFPAY ==
[2023-02-20 12:47] VITALS: BP 152/90; PULSE 66; RESP 16; TEMP 36.7; O2SAT 98
[2023-02-20 13:04] VITALS: BP 145/76; PULSE 65; RESP 14; O2SAT 94
[2023-02-20 13:16] LABS: Add Urine Microscopic? NO; Charge for UA Resulting for Rev
--- NOTE | 2023-02-20 13:16 | CT_ITS ---
WS: [id number] CT ABDOMEN PELVIS TECHNIQUE: Contrast-enhanced CT of the abdomen and pelvis with coronal and sagittal reformatted image s. CLINICAL INFORMATION: RLQ abdominal pain/tenderness, nausea, diarrhea COMPARISON: January 17, 2022 DLP: 1134.[address] scans at [facility] use at least one of these dose optimization techniques: automated e xposure control; mA and/or kV adjustment per patient size (includes targeted exams where dose is matc hed to clinical indication); or iterative reconstruction. FINDINGS: Mild enhancement with distention involving the appendix in RIGHT lower quadrant suspicious for acute appendicitis. Slight surrounding induration. Appendix measures 8 mm in maximum transverse d imension. No surrounding fluid collection or abscess. Diffuse fatty infiltration liver. Mild hepatomegaly. Normal spleen. Normal portal vein and splenic ve in. Tiny esophageal hiatal hernia. Fatty atrophy of the pancreas. Adrenal glands are normal. No hydronephrosis in either kidney. LEFT renal cyst. Lobulated LEFT renal cyst measures 4.3 x 2.9 CM. Normal caliber abdominal aorta. Celiac and SMA are patent. Normal sigmoid colon. A few prominent lymph nodes in the RIGHT lower quadrant can be seen with mesent jony adenitis. Normal lumbar spine. CT/CT abdomen pelvis w con* [id number] IMPRESSION: 1. Mild distention with slight induration about the proximal appendix suspicio us for early acute appendicitis. This is new compared to January 17, 2022. Append ix measures approximately 8 mm in transverse dimension. 2. No evidence of abscess or fluid collection. 3. A few prominent lymph nodes in the RIGHT lower quadrant may be reactive or can be seen with mesenteric adenitis. 4. Mild diffuse fatty infiltration liver. 5. No other suspicious findings. Notified BROOKE Galvez at 02/20/2023 2:16 PM.
[2023-02-20 13:17] LABS: Basophils # 0.1 10^3/uL (0.0-0.1); Basophils % 0.9 %; Eosinophils # 0.1 10^3/uL (0.0-0.8); Eosinophils % 1.4 %; Hematocrit 43.2 % (42.0-52.0); Hemoglobin 14.9 g/dL (11.7-16.6); Lymphocytes # 1.6 10^3/uL (0.8-4.8); Lymphocytes % 28.9 %; Mean Corpuscular HGB Conc 34.5 g/dL (30.0-36.0); Mean Corpuscular Hemoglobin 31.6 pg (28.0-34.0); Mean Corpuscular Volume 91.7 fl (80-94); Mean Platelet Volume 9.6 fL (7.4-10.4); Monocytes # 0.3 10^3/uL (0.2-0.9); Monocytes % 5.5 %; Neutrophils # 3.51 10^3/uL (1.8-7.7); Neutrophils % 62.8 %; Nucleated Red Blood Cells % 0 %; Platelet Count 266 10^3/cmm (130-400); Red Blood Count 4.71 10^6/uL (4.1-5.3); Red Cell Distribution Width 12.7 % (12.1-15.1); White Blood Count 5.6 10^3/uL (4.0-10.0)
--- NOTE | 2023-02-20 13:17 | W.ED.ABDPA2 ---
HPI - Abdominal Pain General: Chief Complaint: Abdominal Pain Stated Complaint: BC sent for possibly appy Time Seen by Provider: 02/20/23 12:53 History of Present Illness: Patient is a 27-year-old male who comes to the ED with abdominal pain. Patient resides in a intermediate and has a infection prevention coordinator present. Symptoms started approximately 3 days ago. Pain is constant and he rates it a 9 out of 10 and its located in the right lower quadrant of the abdomen. He says walking or bending over worsens pain. He says putting some pressure on right lower quadrant of the abdomen does decrease the pain slightly. Endorses nausea, decreased appetite and had a couple episodes of diarrhea yesterday. Denies any episodes of emesis, fevers or bladder symptoms. Denies any past abdominal surgeries. Associated Symptoms: Reports diarrhea and nausea; Denies chills, constipation, dysuria, fever(s), hematochezia, hematuria and vomiting Review of Systems Const: Reports: change in appetite (Decreased appetite); Denies: fever(s), chills or fatigue Eyes: Denies: change in vision or eye discomfort ENMT: Denies: throat pain, odynophagia, nasal discharge or nasal congestion Card: Denies: chest pain, palpitations, edema, swelling of feet/ankles, dyspnea on exertion or orthopnea Resp: Denies: dyspnea, productive cough or non-productive cough GI: Reports: abdominal pain, nausea and diarrhea; Denies: vomiting, constipation or hematochezia : Denies: flank pain, difficulty urinating, dysuria or hematuria Musc: Denies: neck pain, back pain or extremity swelling Skin/Breast: Denies: rash or new lesions Neuro: Denies: headache(s), numbness in extremities or weakness in extremities [facility] ED PFSH: Medical History No pertinent past medical history Surgical History No pertinent past surgical history Social History Smoking and tobacco status: current every day smoker (chew) Current gender identity: Male Physical Exam Const: COMMON NORMALS: patient oriented x3 and alert GENERAL APPEARANCE: cooperative HENMT: COMMON NORMALS: normocephalic HEAD & SCALP: normocephalic MOUTH: Normal oral and palatal mucosa present THROAT: posterior oropharynx normal and uvula midline Neck/C-Spine: COMMON NORMALS: supple GENERAL: Yes normal visual inspection Resp: COMMON NORMALS: normal respiratory effort, No retractions, No use of accessory muscles and clear to auscultation bilaterally AUSCULTATION: clear to auscultation bilaterally Cardio: COMMON NORMALS: regular rate, regular rhythm, S1 normal heart sound present, S2 normal heart sound present, No gallops present (Cardio), No clicks present (Cardio), No murmurs present (Cardio) and Peripheral pulses 2+ throughout RATE: regular rate RHYTHM: regular rhythm HEART SOUNDS: S1 normal heart sound present and S2 normal heart sound present PERIPHERAL PULSES: Peripheral pulses 2+ throughout GI: COMMON NORMALS: Normal to inspection, nondistended, normoactive bowel sounds present, Soft to palpation and no masses PALPATION: Yes Soft to palpation and Yes Tenderness to palpation present (GI) Details: RLQ : COMMON NORMALS: Yes no CVA tenderness BLADDER/KIDNEY EXAM: Yes no CVA tenderness Back/Pelvis: COMMON NORMALS: no CVA tenderness Extremity: COMMON NORMALS: normal to inspection Neuro: COMMON NORMALS: patient oriented x3 SENSORIUM/ORIENTATION: Yes alert GAIT: Yes Normal gait present Skin: GENERAL SKIN EXAM: dry skin Course Vital Signs: Vital signs: Vital Signs Temperature 98.0 F 02/20/23 12:47 Pulse Rate 83 02/20/23 14:57 Respiratory Rate 16 02/20/23 14:57 Blood Pressure 129/69 02/20/23 14:57 Pulse Oximetry 98 02/20/23 14:57 Oxygen Delivery Me thod Room Air 02/20/23 14:57 MDM - Abdominal Pain Medical Decision Making Patient is a 27-year-old male who comes to the ED with abdominal pain. Patient resides in a intermediate and has a infection prevention coordinator present. Symptoms started approximately 3 days ago. Pain is constant and he rates it a 9 out of 10 and its located in the right lower quadrant of the abdomen. He says walking or bending over worsens pain. He says putting some pressure on right lower quadrant of the abdomen does decrease the pain slightly. Endorses nausea, decreased appetite and had a couple episodes of diarrhea yesterday. Denies any episodes of emesis, fevers or bladder symptoms. Denies any past abdominal surgeries. Vitals are stable. Patient appears nontoxic in no acute distress or pain. He does have some right lower quadrant abdominal tenderness upon exam, but no peritoneal signs or any acute abdomen findings. White blood cell count 5.6 and the rest of CBC and CMP are unremarkable. CRP slightly elevated 17.2. CT of abdomen pelvis shows some possible early signs of appendicitis. I contacted Dr. Hauser the general surgeon and told him about patient case, labs and CT findings. He recommended trying outpatient treatment with antibiotics first and give patient strict return to ED precautions if symptoms not getting any better. He recommended sending patient home with a prescription for Augmentin, pain and nausea meds. Patient was given a dose of IV fluids, nausea, pain meds and Zosyn here in the ED and was stable for discharge home. He was diagnosed with appendicitis and discharged home with a prescription for Augmentin. I placed order with case management for patient be referred to Dr. Hauser for reevaluation. I stressed with patient and caretakers to come back to the ED if symptoms not improving over the next couple days. Patient and patient's infection prevention coordinator understood and agreed with plan. Lab Data I reviewed the patient's lab results. 02/20/23 13:00 02/20/23 13:00 Labs/Radiology: Radiology Impressions Abdomen/Pelvis CT 02/20/23 13:16 IMPRESSION: 1. Mild distention with slight induration about the proximal appendix suspicious for early acute appendicitis. This is new compared to January 17, 2022. Appendix measures approximately 8 mm in transverse dimension. 2. No evidence of abscess or fluid collection. 3. A few prominent lymph nodes in the RIGHT lower quadrant may be reactive or can be seen with mesenteric adenitis. 4. Mild diffuse fatty infiltration liver. 5. No other suspicious findings. Notified BROOKE Galvez at 02/20/2023 2:16 PM. Laboratory Results WBC 5.6 10^3/uL (4.0-10.0) 02/20/23 13:00 RBC 4.71 10^6/uL (4.1-5.3) 02/20/23 13:00 Hgb 14.9 g/dL (11.7-16.6) 02/20/23 13:00 Hct 43.2 % (42.0-52.0) 02/20/23 13:00 MCV 91.7 fl (80-94) 02/20/23 13:00 MCH 31.6 pg (28.0-34.0) 02/20/23 13:00 MCHC 34.5 g/dL (30.0-36.0) 02/20/23 13:00 RDW 12.7 % (12.1-15.1) 02/20/23 13:00 Plt Count 266 10^3/cmm (130-400) 02/20/23 13:00 MPV 9.6 fL (7.4-10.4) 02/20/23 13:00 Neut % (Auto) 62.8 % 02/20/23 13:00 Lymph % (Auto) 28.9 % 02/20/23 13:00 [place] % (Auto) 5.5 % 02/20/23 13:00 Eos % (Auto) 1.4 % 02/20/23 13:00 Baso % (Auto) 0.9 % 02/20/23 13:00 Neut # (Auto) 3.51 10^3/uL (1.8-7.7) 02/20/23 13:00 Lymph # (Auto) 1.6 10^3/uL (0.8-4.8) 02/20/23 13:00 [place] # (Auto) 0.3 10^3/uL (0.2-0.9) 02/20/23 13:00 Eos # (Auto) 0.1 10^3/uL (0.0-0.8) 02/20/23 13:00 Baso # (Auto) 0.1 10^3/uL (0.0-0.1) 02/20/23 13:00 Nucleated RBC % (auto) 0 % 02/20/23 13:00 Nucleated RBCs # 0.0 /100WBC 02/20/23 13:00 Sodium 141 mmol/L (136-145) 02/20/23 13:00 Potassium 4.0 mmol/L (3.5-5.1) 02/20/23 13:00 Chloride 106 mmol/L (98-107) 02/20/23 13:00 Carbon Dioxide 25 mmol/L (22-29) 02/20/23 13:00 Anion Gap 14.0 (5-19) 02/20/23 13:00 BUN 6 mg/dL (6-20) 02/20/23 13:00 Creatinine 0.7 mg/dL (0.7-1.2) 02/20/23 13:00 GFR Calculation 136.3 mL/min (90-130) H 02/20/23 13:00 Glucose 83 mg/dL (65-115) 02/20/23 13:00 Calculated Osmolality 289 mOsm/kg (285-295) 02/20/23 13:00 Calcium 9.1 mg/dL (8.5-10.5) 02/20/23 13:00 Total Bilirubin 0.4 mg/dL (0.15-1.2) 02/20/23 13:00 AST 54 U/L (0-40) H 02/20/23 13:00 ALT 66 U/L (0-41) H 02/20/23 13:00 Alkaline Phosphatase 132 U/L (40-130) H 02/20/23 13:00 C-Reactive Protein 17.2 mg/L (0.0-4.9) H 02/20/23 13:00 Total Protein 7.5 g/dL (6.6-8.7) 02/20/23 13:00 Albumin 4.6 g/dL (3.5-5.2) 02/20/23 13:00 Globulin 2.9 g/dL (1.3-4.6) 02/20/23 13:00 Lipase 20 U/L (13-60) 02/20/23 13:00 Urine Color Yellow (Yellow) 02/20/23 13:06 Urine Appearance Clear (CLEAR) 02/20/23 13:06 Urine pH 6 (5-7) 02/20/23 13:06 Ur Specific [place] 1.020 (1.005-1.030) 02/20/23 13:06 Urine Protein Neg (Negative) 02/20/23 13:06 Urine Glucose (UA) Norm (Normal) 02/20/23 13:06 Urine Ketones Negative (Negative) 02/20/23 13:06 Urine Blood Neg (Negative) 02/20/23 13:06 Urine Nitrate Negative (Negative) 02/20/23 13:06 Urine Bilirubin Neg (Negative) 02/20/23 13:06 Urine Urobilinogen Norm mg/dL (Negative) 02/20/23 13:06 Ur Leukocyte Esterase Negative (Negative) 02/20/23 13:06 Discharge Plan Discharge Patient Disposition: Home Clinical Impression: Appendicitis Qualifiers: Appendicitis type: acute appendicitis Acute appendicitis type: unspecified acute appendicitis type Qualified Code(s): K35.80 - Unspecified acute appendicitis Condition: Stable Prescriptions: New Augmentin 500-125 mg tablet 1 tab PO BID 10 Days Qty: 20 0RF ondansetron 4 mg tablet,disintegrating 4 mg PO Q8H PRN (Reason: nausea and vomiting) Qty: 20 0RF No Action mupirocin 2 % ointment 1 applic topical BID Qty: 22 1RF Rx Instructions: Apply to affected area(s) until healed triamcinolone acetonide 0.1 % ointment 1 applic topical BID Qty: 80 0RF Rx Instructions: Apply to affected area no more than 2 weeks per month. Not for face doxepin 10 mg Capsule 10 mg PO BEDTIME fluticasone propionate 50 mcg/actuation [place],Suspension 1 spray INTRANASAL DAILY risperidone 0.5 mg Tablet 1.5 mg PO BEDTIME venlafaxine 75 mg Tablet Extended Release 24hr 75 mg PO QAM naproxen [Naprosyn] 500 mg tablet 500 mg PO BID PRN (Reason: pain) Qty: 20 0RF Lamictal 150 mg Tablet 150 mg PO BEDTIME cetirizine 10 mg Tablet 10 mg PO DAILY PRN (Reason: Allergy Symptoms) acetaminophen 500 mg Tablet 1,000 mg PO Q8H PRN (Reason: Pain) meloxicam 7.5 mg Tablet 7.5 mg PO DAILY hydrocortisone 1 % Cream 1 applic TOPICAL QID PRN (Reason: Rash) gemfibrozil 600 mg Tablet 600 mg PO BID omeprazole 20 mg Capsule,Delayed Release(Dr/Ec) 20 mg PO DAILY lisinopril 5 mg Tablet 5 mg PO DAILY hydroxyzine HCl 10 mg Tablet 10 mg PO TID PRN (Reason: Anxiety) Crestor 5 mg Tablet 5 mg PO DAILY Discharge Orders: Discharge ED (Routine); Ordered 02/20/23 Ordered By: Carlos Asencio Referrals: Shahrzad Batres FNP [Primary Care Provider] - Discharge Diet: Advance as tolerated and Clear Liquid Discharge Activity: Increase activity as tolerated Patient Instructions: Acute Abdominal Pain (DC), Opioid Safety Activity Restrictions/Additional Instructions: Follow-up with medical provider as directed in the next 2 to 3 days for reevaluation and to have a repeat abdominal exam. Clear liquid diet for the next 24 hours and slowly advance diet as tolerated. Take medications as prescribed. Return to the ER or your medical provider if condition worsens over the next couple days. Please read and understand discharge instructions. Thank you for choosing [facility] for your healthcare needs today. Please realize this is an emergency room and that we are providing you with a medical screening exam and this may not be complete and all inclusive of all the testing and or work up that you may need to determine your ailment or severity of your illness. It is very important that you follow up as instructed or that you return to the Emergency Department should you have concerns or if your condition changes or worsens in any way. Coding Level of Care Code ED Seed Collector for Basim Stover
[2023-02-20 13:29] LABS: Urine Appearance Clear (CLEAR); Urine Color Yellow (Yellow); pH Urine 6 (5-7)
[2023-02-20 13:30] LABS: Bilirubin Urine Neg (Negative); Blood Urine Neg (Negative); Glucose Urine UA Norm (Normal); Ketones Urine Negative (Negative); Leukocyte Esterase Urine Negative (Negative); Nitrate Urine Negative (Negative); Protein Urine Neg (Negative); Urobilinogen Urine Norm (Negative)
[2023-02-20 13:39] LABS: Alanine Aminotransferase 66 U/L (0-41); Albumin Level 4.6 g/dL (3.5-5.2); Alkaline Phosphatase 132 U/L (40-130); Aspartate Amino Transferase 54 U/L (0-40); Blood Urea Nitrogen 6 mg/dL (6-20); C Reactive Protein 17.2 mg/L (0.0-4.9); Calcium 9.1 mg/dL (8.5-10.5); Carbon Dioxide 25 mmol/L (22-29); Chloride 106 mmol/L (98-107); Globulin 2.9 g/dL (1.3-4.6); Glomerular Filtration Rate 136.3 mL/min (90-130); Glucose 83 mg/dL (65-115); Lipase 20 U/L (13-60); Osmolality Calculated 289 mOsm/kg (285-295); Sodium 141 mmol/L (136-145); Total Bilirubin 0.4 mg/dL (0.15-1.2); Total Protein 7.5 g/dL (6.6-8.7)
[2023-02-20] MEDS: iohexol 350 mg/mL 500 mL Btl (per mL) IV (13:39)
[2023-02-20 13:49] VITALS: RESP 14; O2SAT 97
[2023-02-20] MEDS: morphine 4 mg/mL SDV 1 mL IVP (13:49)
[2023-02-20] MEDS: sodium chloride 0.9% 1,000 ML 999 ML IV (13:49)
[2023-02-20] MEDS: ondansetron 2 mg/ML SDV 2 mL 4 MG IVP (13:49)
[2023-02-20 14:57] VITALS: BP 129/69; PULSE 83; RESP 16; O2SAT 98
[2023-02-20] MEDS: piperacillin-tazobactam 3.375 GM in sodium chloride 0.9% (plus) 50 ML IV (15:18)
--- NOTE | 2023-02-21 11:22 | PC.NURSE ---
Addendum entered by Romi Hoyt 02/27/23 08:57: manager internet retails sales received the following message from general surgery regarding follow up appointment: Called MANDIE graham, lead programmer stated patient is doing better since ER visit and an appointment is not needed.. Original Note: Patient referred to general surgery for right lower quadrant pain. CM sent message to General surgery to call patient with an appt.
== END 2023-02-20 16:24 | disposition home or self-care (01) ==
PROVIDERS: Emergency Provider Physician Assistant; PCP Nurse Practitioner Family
DX: K35.80 Unspecified acute appendicitis (principal); F17.220 Nicotine dependence, chewing tobacco, uncomplicated
CPT/HCPCS: 74177; 80053; 81003; 83690; 85025; 86140; 96365; 96375; 99285; J2270; J2405; J2543; J7030; Q9967

== ENCOUNTER 2023-03-03 11:59 | Emergency (ER) | payer MEDICAID, SELFPAY ==
[2023-03-03 12:10] VITALS: BP 137/81; PULSE 71; RESP 16; TEMP 36.7; O2SAT 99; BMI 32.3
--- NOTE | 2023-03-03 12:45 | CT_ITS ---
WS: [id number] CT ABDOMEN PELVIS TECHNIQUE: Contrast-enhanced CT of the abdomen and pelvis with coronal and sagittal reformatted image s. CLINICAL INFORMATION: right abdominal pain COMPARISON: CT abdomen pelvis February 20, 2023 DLP: 1106.[address] scans at [facility] use at least one of these dose optimization techniques: automated e xposure control; mA and/or kV adjustment per patient size (includes targeted exams where dose is matc hed to clinical indication); or iterative reconstruction. FINDINGS: Previously described findings of acute appendicitis have improved. Appendix appears decompressed toda y. No drainable fluid collections. Persistent but improved prominent lymph nodes in the RIGHT lower q uadrant. Bilateral mild bibasilar atelectasis. Diffuse fatty infiltration liver. Mild hepatomegaly. Normal GE junction. Adrenal glands are normal. No hydronephrosis. LEFT renal cyst measuring 2.9 x 4.5 cm in the upper pole is unchanged. Normal pancreatic parenchymal enhancement. Gallbladder is contracted. Darlyn l portal vein and splenic vein. Normal caliber abdominal aorta. Normal sigmoid colon. CT/CT abdomen pelvis w con* [id number] IMPRESSION: 1. Previously described findings of acute appendicitis 2. improved. Appendix appears decompressed today. 3. Improved RIGHT lower quadrant lymph nodes. 4. No other significant changes.
--- NOTE | 2023-03-03 12:46 | W.ED.ABDPA2 ---
HPI - Abdominal Pain General: Chief Complaint: Abdominal Pain Stated Complaint: abd pain, right side Time Seen by Provider: 03/03/23 12:37 Source: patient Limitations: no limitations History of Present Illness: Patient presents to the emergency department today for evaluation treatment of return of right-sided abdominal pain. Patient's chart review shows he was seen and evaluated here on 02/20 for right lower quadrant pain. Patient was found to have an early onset appendicitis on CT however, lab work was all stable. After speaking to the general surgeon, the recommendation was made for outpatient antibiotic treatment. Patient was started on Augmentin and indicated that he took all the medication without difficulty. He reports improvement of his right lower quadrant pain until today. Patient states pain is a little bit higher and more towards his bellybutton than it was on the . He has not had vomiting or fever but, did have return of diarrhea. Review of Systems General: Reports: 10 or more systems reviewed and unremarkable except in HPI and below PFSH ED PFSH: Medical History No pertinent past medical history Surgical History No pertinent past surgical history Social History Smoking and tobacco status: current every day smoker (chew) Current gender identity: Male Physical Exam Const: COMMON NORMALS: no acute distress, patient oriented x3 and alert HENMT: COMMON NORMALS: normocephalic, atraumatic, hearing grossly normal bilaterally and moist oral mucous membranes HEAD & SCALP: normocephalic and atraumatic Eye: COMMON NORMALS: Equal, round and reactive pupils present, EOMs intact bilaterally and conjunctivae normal CONJUNCTIVA: Yes conjunctivae normal PUPIL: Yes Equal, round and reactive pupils present Neck/C-Spine: COMMON NORMALS: full ROM and no JVD Lymph: LYMPHATIC: no lymphadenopathy noted Resp: COMMON NORMALS: normal respiratory effort, No retractions, No use of accessory muscles and clear to auscultation bilaterally AUSCULTATION: clear to auscultation bilaterally Cardio: COMMON NORMALS: no JVD, regular rate and regular rhythm RATE: regular rate RHYTHM: regular rhythm GI: OTHER: Diminished bowel sounds throughout. Soft. Tender along right abdomen- including RLQ. No rebound. : COMMON NORMALS: Yes no CVA tenderness BLADDER/KIDNEY EXAM: Yes no CVA tenderness Back/Pelvis: COMMON NORMALS: no CVA tenderness, no thoracic nor lumbar tenderness and thoraco-lumbar ROM normal Extremity: COMMON NORMALS: normal to inspection, full ROM and capillary refill normal Neuro: COMMON NORMALS: patient oriented x3 SENSORIUM/ORIENTATION: Yes alert Psych: COMMON NORMALS: mental status grossly normal, Normal thought process present, cooperative, normal affect and activity/motor behavior normal THOUGHT PROCESS: Normal thought process present Skin: COMMON NORMALS: no rashes or lesions noted and no wounds GENERAL SKIN EXAM: no rashes or lesions noted Course Vital Signs: Vital signs: Vital Signs Temperature 98.1 F 03/03/23 12:10 Pulse Rate 71 03/03/23 12:10 Respiratory Rate 16 03/03/23 12:10 Blood Pressure 137/81 03/03/23 12:10 Pulse Oximetry 99 03/03/23 12:10 Oxygen Delivery Me thod Room Air 03/03/23 12:10 MDM - Abdominal Pain Medical Decision Making Pt presents today for return/worsening of RLQ pain. Patient was previously seen and diagnosed with appendicitis however, general surgery believe he may be treated outpt with Augmentin. patient noted improvement with treatment but had return of pain today. No fever or vomiting but diarrhea had returned. Labs are unremarkable and CT showed improved appendix with deflation noted. however, pt still has large mesenteric lymph noted in the RLQ indicating mesenteric adenitis. Labs were hydrolyzed and various issues with canceled orders occurred but CBC showed no elevated WBC. We still were waiting on the other labs to be collected and run several hours after the initial orders and the patient guardians were indicating they needed to leave. Called Dr Hauser to make him aware of the patient return to the ER today. he indicated there was not acute treatment or intervention for mesenteric adenitis but that he has no concerns today for any return of appendicitis. Discussed findings with patient and his guardians. 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 They verbalized understanding and agreement to the treatment plan. Differential Diagnosis Likely abdominal pain, acute appendicitis, constipation, diverticulitis, gastroenteritis and small bowel obstruction Lab Data 03/03/23 13:36 03/03/23 13:05 Labs/Radiology: Radiology Impressions Abdomen/Pelvis CT 03/03/23 12:45 IMPRESSION: 1. Previously described findings of acute appendicitis 2. improved. Appendix appears decompressed today. 3. Improved RIGHT lower quadrant lymph nodes. 4. No other significant changes. Laboratory Results WBC 5.5 10^3/uL (4.0-10.0) 03/03/23 13:36 RBC 4.68 10^6/uL (4.1-5.3) 03/03/23 13:36 Hgb 14.5 g/dL (11.7-16.6) 03/03/23 13:36 Hct 42.7 % (42.0-52.0) 03/03/23 13:36 MCV 91.2 fl (80-94) 03/03/23 13:36 MCH 31.0 pg (28.0-34.0) 03/03/23 13:36 MCHC 34.0 g/dL (30.0-36.0) 03/03/23 13:36 RDW 12.8 % (12.1-15.1) 03/03/23 13:36 Plt Count 122 10^3/cmm (130-400) L 03/03/23 13:36 MPV 10.9 fL (7.4-10.4) H 03/03/23 13:36 Neut % (Auto) 60.3 % 03/03/23 13:36 Lymph % (Auto) 33.0 % 03/03/23 13:36 [place] % (Auto) 4.8 % 03/03/23 13:36 Eos % (Auto) 0.6 % 03/03/23 13:36 Baso % (Auto) 0.9 % 03/03/23 13:36 Neut # (Auto) 3.29 10^3/uL (1.8-7.7) 03/03/23 13:36 Lymph # (Auto) 1.8 10^3/uL (0.8-4.8) 03/03/23 13:36 [place] # (Auto) 0.3 10^3/uL (0.2-0.9) 03/03/23 13:36 Eos # (Auto) 0.0 10^3/uL (0.0-0.8) 03/03/23 13:36 Baso # (Auto) 0.1 10^3/uL (0.0-0.1) 03/03/23 13:36 Nucleated RBC % (auto) 0 % 03/03/23 13:36 Nucleated RBCs # 0.0 /100WBC 03/03/23 13:36 ESR < 1 mm/hr (0-10) 03/03/23 13:36 Sodium Cancelled 03/03/23 13:36 Potassium Cancelled 03/03/23 13:36 Chloride Cancelled 03/03/23 13:36 Carbon Dioxide Cancelled 03/03/23 13:36 Anion Gap Cancelled 03/03/23 13:36 BUN Cancelled 03/03/23 13:36 Creatinine Cancelled 03/03/23 13:36 GFR Calculation Cancelled 03/03/23 13:36 Glucose Cancelled 03/03/23 13:36 Calculated Osmolality Cancelled 03/03/23 13:36 Calcium Cancelled 03/03/23 13:36 Total Bilirubin Cancelled 03/03/23 13:36 AST Cancelled 03/03/23 13:36 ALT Cancelled 03/03/23 13:36 Alkaline Phosphatase Cancelled 03/03/23 13:36 C-Reactive Protein Cancelled 03/03/23 13:36 Total Protein Cancelled 03/03/23 13:36 Albumin Cancelled 03/03/23 13:36 Globulin Cancelled 03/03/23 13:36 Lipase Cancelled 03/03/23 13:36 Discharge Plan Discharge Patient Disposition: Home Clinical Impression: Mesenteric adenitis Condition: Stable Prescriptions: No Action mupirocin 2 % ointment 1 applic topical BID Qty: 22 1RF Rx Instructions: Apply to affected area(s) until healed triamcinolone acetonide 0.1 % ointment 1 applic topical BID Qty: 80 0RF Rx Instructions: Apply to affected area no more than 2 weeks per month. Not for face doxepin 10 mg Capsule 10 mg PO BEDTIME fluticasone propionate 50 mcg/actuation [place],Suspension 1 spray INTRANASAL DAILY risperidone 0.5 mg Tablet 1.5 mg PO BEDTIME venlafaxine 75 mg Tablet Extended Release 24hr 75 mg PO QAM naproxen [Naprosyn] 500 mg tablet 500 mg PO BID PRN (Reason: pain) Qty: 20 0RF Lamictal 150 mg Tablet 150 mg PO BEDTIME cetirizine 10 mg Tablet 10 mg PO DAILY PRN (Reason: Allergy Symptoms) acetaminophen 500 mg Tablet 1,000 mg PO Q8H PRN (Reason: Pain) meloxicam 7.5 mg Tablet 7.5 mg PO DAILY hydrocortisone 1 % Cream 1 applic TOPICAL QID PRN (Reason: Rash) gemfibrozil 600 mg Tablet 600 mg PO BID omeprazole 20 mg Capsule,Delayed Release(Dr/Ec) 20 mg PO DAILY lisinopril 5 mg Tablet 5 mg PO DAILY hydroxyzine HCl 10 mg Tablet 10 mg PO TID PRN (Reason: Anxiety) Crestor 5 mg Tablet 5 mg PO DAILY ondansetron 4 mg tablet,disintegrating 4 mg PO Q8H PRN (Reason: nausea and vomiting) Qty: 20 0RF Discharge Orders: Discharge ED (Routine); Ordered 03/03/23 Ordered By: Astrid Kennedy Referrals: Shahrzad Batres FNP [Primary Care Provider] - Discharge Diet: Usual diet Discharge Activity: Increase activity as tolerated Patient Instructions: Mesenteric Adenitis (ED) Activity Restrictions/Additional Instructions: Lab work is stable today. Repeat CT examination shows improvement of the swelling and inflammation of the appendix however, you still have noticeably enlarged mesenteric lymph nodes in your right lower quadrant. This condition is called mesenteric adenitis. I did reach out and speak with the general surgeon-Dr. Hauser regarding this finding. He indicates that there is no specific treatment for mesenteric adenitis and at this time, does not have any concerns for return appendicitis or perforation/abscess. Continue to stay well-hydrated. Continue to watch for any new onset fever change or worsening in pain. If these agree should be seen and reevaluated. Stand Alone Forms: Work/School Release Coding Level of Care Code ED Check And Transfer Beader for Basim Stover
[2023-03-03 13:51] LABS: Basophils # 0.1 10^3/uL (0.0-0.1); Basophils % 0.9 %; Eosinophils % 0.6 %; Hematocrit 42.7 % (42.0-52.0); Hemoglobin 14.5 g/dL (11.7-16.6); Lymphocytes # 1.8 10^3/uL (0.8-4.8); Mean Corpuscular Volume 91.2 fl (80-94); Mean Platelet Volume 10.9 fL (7.4-10.4); Monocytes # 0.3 10^3/uL (0.2-0.9); Monocytes % 4.8 %; Neutrophils # 3.29 10^3/uL (1.8-7.7); Neutrophils % 60.3 %; Nucleated Red Blood Cells % 0 %; Platelet Count 122 10^3/cmm (130-400); Red Blood Count 4.68 10^6/uL (4.1-5.3); Red Cell Distribution Width 12.8 % (12.1-15.1); White Blood Count 5.5 10^3/uL (4.0-10.0)
[2023-03-03 13:58] LABS: Erythrocyte Sedimentation Rate < 1 mm/hr (0-10)
[2023-03-03] MEDS: sodium chloride 0.9% 1,000 ML 999 ML IV (14:24)
[2023-03-03 15:54] LABS: Alanine Aminotransferase 64 U/L (0-41); Albumin Level 4.6 g/dL (3.5-5.2); Alkaline Phosphatase 120 U/L (40-130); Aspartate Amino Transferase 39 U/L (0-40); Blood Urea Nitrogen 12 mg/dL (6-20); Calcium 8.7 mg/dL (8.5-10.5); Carbon Dioxide 25 mmol/L (22-29); Chloride 104 mmol/L (98-107); Globulin 2.3 g/dL (1.3-4.6); Glomerular Filtration Rate 136.3 mL/min (90-130); Glucose 78 mg/dL (65-115); Lipase 18 U/L (13-60); Osmolality Calculated 291 mOsm/kg (285-295); Sodium 141 mmol/L (136-145); Total Bilirubin 0.6 mg/dL (0.15-1.2); Total Protein 6.9 g/dL (6.6-8.7)
== END 2023-03-03 16:33 | disposition home or self-care (01) ==
PROVIDERS: Emergency Provider Physician Assistant; PCP Nurse Practitioner Family
DX: I88.0 Nonspecific mesenteric lymphadenitis (principal); F17.220 Nicotine dependence, chewing tobacco, uncomplicated
CPT/HCPCS: 36415; 74177; 80053; 83690; 85025; 85651; 86140; 96360; 99285; J7030; Q9967

== ENCOUNTER 2023-07-19 17:07 | Emergency (ER) | payer MEDICAID, SELFPAY ==
[2023-07-19 17:09] VITALS: BP 148/83; PULSE 105; RESP 16; TEMP 36.9; O2SAT 98; BMI 33.3
--- NOTE | 2023-07-19 17:51 | W.ED.SKABFB ---
HPI - Skin/Abscess/Foreign Bdy General: Chief complaint: Skin/Abscess/Foreign Body Stated complaint: skin infection? sore throat Time Seen by Provider: 07/19/23 17:51 History of Present Illness: 27-year-old male patient comes in with crusted lesions to the right upper arm and right chest wall. Notes honey crusted type lesions to the EXTR extremity and chest wall. 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 Patient appears nontoxic. Patient reports no pain to the lesions. Patient reports minimal to no itching. Review of Systems General: Reports: 10 or more systems reviewed and unremarkable except in HPI and below Skin/Breast: Reports: sores PFSH ED PFSH: Medical History No pertinent past medical history Surgical History No pertinent past surgical history Social History Smoking and tobacco status: current every day smoker (chew) Current gender identity: Male Physical Exam Const: COMMON NORMALS: alert HENMT: COMMON NORMALS: normocephalic HEAD & SCALP: normocephalic Neck/C-Spine: COMMON NORMALS: full ROM Resp: COMMON NORMALS: normal respiratory effort Cardio: COMMON NORMALS: regular rate RATE: regular rate Neuro: SENSORIUM/ORIENTATION: Yes alert Course Vital Signs: Vital signs: Vital Signs Temperature 98.5 F 07/19/23 17:09 Pulse Rate 105 H 07/19/23 17:09 Respiratory Rate 16 07/19/23 17:09 Blood Pressure 148/83 07/19/23 17:09 Pulse Oximetry 98 07/19/23 17:09 MDM - Skin/Abscess/Foreign Bdy Medicial Decision Making 26-year-old male patient has several lesions to the right upper arm and right anterior chest wall that are honey crusted. Distal pulses and sensation are intact. 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 Patient also has a chronic skin condition which I believe is eczema. Patient cannot tell me the name. Patient does have some intellectual disability and lives at a assisted living home. Differential diagnosis includes but not limited to contact dermatitis, impetigo, neurodermatitis. Patient be covered for impetigo with Augmentin and mupirocin ointment. No radiology studies performed this visit Discharge Plan Discharge Patient Disposition: Home Clinical Impression: Impetigo Condition: Stable Prescriptions: New amoxicillin-pot clavulanate 875-125 mg tablet 1 tab PO BID Qty: 14 0RF mupirocin 2 % ointment 1 applic topical BID Qty: 22 0RF No Action mupirocin 2 % ointment 1 applic topical BID Qty: 22 1RF Rx Instructions: Apply to affected area(s) until healed triamcinolone acetonide 0.1 % ointment 1 applic topical BID Qty: 80 0RF Rx Instructions: Apply to affected area no more than 2 weeks per month. Not for face doxepin 10 mg Capsule 10 mg PO BEDTIME fluticasone propionate 50 mcg/actuation [place],Suspension 1 spray INTRANASAL DAILY risperidone 0.5 mg Tablet 1.5 mg PO BEDTIME venlafaxine 75 mg Tablet Extended Release 24hr 75 mg PO QAM naproxen [Naprosyn] 500 mg tablet 500 mg PO BID PRN (Reason: pain) Qty: 20 0RF Lamictal 150 mg Tablet 150 mg PO BEDTIME cetirizine 10 mg Tablet 10 mg PO DAILY PRN (Reason: Allergy Symptoms) acetaminophen 500 mg Tablet 1,000 mg PO Q8H PRN (Reason: Pain) meloxicam 7.5 mg Tablet 7.5 mg PO DAILY hydrocortisone 1 % Cream 1 applic TOPICAL QID PRN (Reason: Rash) gemfibrozil 600 mg Tablet 600 mg PO BID omeprazole 20 mg Capsule,Delayed Release(Dr/Ec) 20 mg PO DAILY lisinopril 5 mg Tablet 5 mg PO DAILY hydroxyzine HCl 10 mg Tablet 10 mg PO TID PRN (Reason: Anxiety) Crestor 5 mg Tablet 5 mg PO DAILY ondansetron 4 mg tablet,disintegrating 4 mg PO Q8H PRN (Reason: nausea and vomiting) Qty: 20 0RF Discharge Orders: Discharge ED (Routine); Ordered 07/19/23 Ordered By: Philip Flynn Referrals: Shahrzad Batres FNP [Primary Care Provider] - Discharge Diet: Usual diet Discharge Activity: Resume usual activity Patient Instructions: Impetigo (ED) Activity Restrictions/Additional Instructions: Wash hands thoroughly. Avoid picking at the lesions. Apply ointment to each of the crusted lesions until healed. Take oral antibiotic 1 tablet twice a day for 7 days. Follow-up with primary care in 3 to 5 days for recheck. Return to ED for worsening symptoms such as high fever greater than 100.4, increasing redness and swelling of the extremity, or new concerns. Coding Level of Care Code ED Artifacts Conservator for Basim Stover
[2023-07-19] MEDS: amoxicillin-clav 875-125 mg Tablet 1 TAB PO (18:07)
[2023-07-19] MEDS: mupirocin oint 22 gm 1 APPLIC TOPICAL (18:39)
[2023-07-19] MEDS: amoxicillin-clav 875-125 mg Tablet 2 TAB PO (18:39)
== END 2023-07-19 18:48 | disposition home or self-care (01) ==
PROVIDERS: Emergency Provider Nurse Practitioner Family; PCP Nurse Practitioner Family
DX: L01.00 Impetigo, unspecified (principal); F17.220 Nicotine dependence, chewing tobacco, uncomplicated
CPT/HCPCS: 99283

== ENCOUNTER → 2024-09-02 13:45 | Outpatient (BNVA) | payer MEDICAID, SELFPAY | PROVIDERS: PCP Nurse Practitioner Family; Visit Provider Nurse Practitioner Family | DX: L81.0 Postinflammatory hyperpigmentation (principal); B35.8 Other dermatophytoses; L28.1 Prurigo nodularis; B07.8 Other viral warts; Z78.9 Other specified health status | CPT/HCPCS: 17110; 99204 ==

== ENCOUNTER → 2024-09-23 13:45 | Outpatient (BNVA) | payer MEDICAID, SELFPAY | PROVIDERS: PCP Nurse Practitioner Family; Visit Provider Nurse Practitioner Family | DX: L81.0 Postinflammatory hyperpigmentation (principal); B35.8 Other dermatophytoses; L28.1 Prurigo nodularis; B07.8 Other viral warts; L53.8 Other specified erythematous conditions; L08.89 Other specified local infections of the skin and subcutaneous tissue | CPT/HCPCS: 17110; 99214 ==

== ENCOUNTER → 2024-10-19 15:10 | Outpatient (BNVA) | payer MEDICAID, SELFPAY | PROVIDERS: PCP Nurse Practitioner Family; Visit Provider Nurse Practitioner Family | DX: B35.8 Other dermatophytoses (principal); L28.1 Prurigo nodularis; B07.8 Other viral warts; L53.8 Other specified erythematous conditions; L08.89 Other specified local infections of the skin and subcutaneous tissue; Z78.9 Other specified health status | CPT/HCPCS: 17110; 99214 ==

== ENCOUNTER → 2024-12-09 11:17 | Outpatient (BNVA) | payer MEDICAID, SELFPAY | PROVIDERS: PCP Nurse Practitioner Family; Visit Provider Nurse Practitioner Family | DX: L28.1 Prurigo nodularis (principal); B07.8 Other viral warts; L53.8 Other specified erythematous conditions; L08.89 Other specified local infections of the skin and subcutaneous tissue; Z78.9 Other specified health status | CPT/HCPCS: 17110; 99213 ==

== ENCOUNTER → 2025-01-14 10:30 | Outpatient (BNVA) | payer MEDICAID, SELFPAY | PROVIDERS: PCP Nurse Practitioner Family; Visit Provider Nurse Practitioner Family | DX: D23.72 Other benign neoplasm of skin of left lower limb, including hip (principal); B07.8 Other viral warts; L29.89 Other pruritus; Z78.9 Other specified health status; L53.8 Other specified erythematous conditions | CPT/HCPCS: 17110; 99212 ==

== ENCOUNTER → 2025-06-06 13:30 | Outpatient (BNVA) | payer MEDICAID, SELFPAY | PROVIDERS: PCP Nurse Practitioner Family; Visit Provider Nurse Practitioner Family | DX: F42.4 Excoriation (skin-picking) disorder (principal); B07.8 Other viral warts; Z78.9 Other specified health status; L53.8 Other specified erythematous conditions; L29.89 Other pruritus | CPT/HCPCS: 17110; 99212 ==